=== PATIENT | female | born 1975 | race Caucasian/White ===

== ENCOUNTER 2018-12-22 22:17 | Emergency (ER) | payer SELFPAY ==
[~2018-12-22] VITALS: Ht 175.3 cm; Wt 104.0 kg
--- NOTE | 2018-12-22 22:22 | ED.ADGEN ---
Past History Past Medical History: Kidney Stones, UTI Adult General Chief Complaint Chief Complaint ".. I think I am having another kidneys stone.. .. I t a stabbing pain in my flank and abdomen... and it radiates down to my lower abdomen. .... " HPI HPI Patient is a 43 year old female who presents with above hx and complaints of right flank back and abdomen pain. Patient gives a history of multiple kidney stones. Patient advises most onset of kidney stones On her right side. She's had one episode of kidney stones on the left side. Patient denies any history of trauma. Patient denies any intake bad food. Patient denies any travel. Patient denies any history immunosuppression. There is no history of colitis, IBS or inflammatory bowel disorders with her family members. No history of vaginal discharge. No history of dysuria currently. The pt. , does have complaints of hematuria Review of Systems Review of Systems Constitutional: Denies fever or chills [] Eyes: Denies change in visual acuity, redness, or eye pain [] HENT: Denies nasal congestion or sore throat [] Respiratory: Denies cough or shortness of breath [] Cardiovascular: No additional information not addressed in HPI [] GI: History of severe abdominal pain, nausea, vomiting. Denies, bloody stools or diarrhea [] : Denies dysuria or hematuria [] Musculoskeletal: Complaints of severe right flank pain Integument: Denies rash or skin lesions [] Neurologic: Denies headache, focal weakness or sensory changes [] Endocrine: Denies polyuria or polydipsia [] All other systems were reviewed and found to be within normal limits, except as documented in this note. Family History Family History Noncontributory Current Medications Current Medications Current Medications Medications (Trade) Dose Ordered Sig/Gabrielle Start Time Stop Time Status Last Admin Dose Admin Famotidine (Pepcid Vial) 20 mg 1X ONCE 12/22/18 23:00 12/22/18 23:01 DC 12/22/18 23:13 20 MG Ketorolac Tromethamine (Toradol 30mg Vial) 30 mg 1X ONCE 12/22/18 23:00 12/22/18 23:01 DC 12/22/18 23:14 30 MG Lactated Ringer's 1,000 ml @ 1,000 mls/hr Q1H 12/22/18 23:00 12/22/18 23:59 DC 12/22/18 23:14 1,000 MLS/HR Levofloxacin (Levaquin) 500 mg 1X ONCE 12/23/18 00:15 12/23/18 00:16 DC 12/23/18 00:02 500 MG Morphine Sulfate (Morphine 10mg Syringe) 10 mg 1X ONCE 12/23/18 00:15 12/23/18 00:16 DC 12/23/18 00:02 10 MG Ondansetron HCl (Zofran) 8 mg 1X ONCE 12/22/18 23:00 12/22/18 23:01 DC 12/22/18 23:13 8 MG Allergies Allergies Allergies Coded Allergies Type Severity Reaction Last Updated Verified No Known Drug Allergies 12/22/18 No Physical Exam Physical Exam Constitutional: in acute distress, non-toxic appearance. [] HENT: Normocephalic, atraumatic, bilateral external ears normal, oropharynx moist, no oral exudates, nose normal. [] Eyes: PERRLA, EOMI, conjunctiva normal, no discharge. [] Neck: Normal range of motion, no tenderness, supple, no stridor. [] Cardiovascular: Tachycardia Heart rate regular rhythm, no murmur [] Lungs & Thorax: Bilateral breath sounds equal at apex auscultation [] Abdomen: Bowel sounds decreased soft, right upper quadrant and flank tenderness, no masses, no pulsatile masses. [Obese. Skin: Warm, dry, no erythema, no rash. [] Back: No tenderness, right CVA tenderness. [] Extremities: No tenderness, no cyanosis, no clubbing, ROM intact, no edema. [] Neurologic: Alert and oriented X 3, normal motor function, normal sensory function, no focal deficits noted. [] Psychologic: Affect anxious, judgement normal, mood normal. [] Current Patient Data Vital Signs Vital Signs Date Time Temp Pulse Resp B/P (MAP) Pulse Ox O2 Delivery O2 Flow Rate FiO2 12/23/18 02:10 102 18 171/122 (138) 98 Room Air 12/22/18 22:17 97.7 Lab Results Laboratory Tests Test 12/22/18 22:30 12/22/18 23:06 White Blood Count 6.2 x10^3/uL (4.0-11.0) Red Blood Count 4.88 x10^6/uL (3.50-5.40) Hemoglobin 14.9 g/dL (12.0-15.5) Hematocrit 43.2 % (36.0-47.0) Mean Corpuscular Volume 89 fL (79-100) Mean Corpuscular Hemoglobin 30 pg (25-35) Mean Corpuscular Hemoglobin Concent 34 g/dL (31-37) Red Cell Distribution Width 13.9 % (11.5-14.5) Platelet Count 281 x10^3/uL (140-400) Neutrophils (%) (Auto) 64 % (31-73) Lymphocytes (%) (Auto) 23 % (24-48) L Monocytes (%) (Auto) 8 % (0-9) Eosinophils (%) (Auto) 4 % (0-3) H Basophils (%) (Auto) 1 % (0-3) Neutrophils # (Auto) 4.0 x10^3uL (1.8-7.7) Lymphocytes # (Auto) 1.4 x10^3/uL (1.0-4.8) Monocytes # (Auto) 0.5 x10^3/uL (0.0-1.1) Eosinophils # (Auto) 0.3 x10^3/uL (0.0-0.7) Basophils # (Auto) 0.0 x10^3/uL (0.0-0.2) Prothrombin Time 9.6 SEC (9.4-11.4) Prothrombin Time INR 0.9 (0.9-1.1) Activated Partial Thromboplast Time 24 SEC (23-33) Urine Collection Type Unknown Urine Color Yellow Urine Clarity Cloudy Urine pH 6.5 Urine Specific [place] 1.025 Urine Protein Neg (NEG-TRACE) Urine Glucose (UA) 100 mg/dL (NEG) Urine Ketones (Stick) Neg mg/dL (NEG) Urine Blood Large (NEG) Urine Nitrite Neg (NEG) Urine Bilirubin Neg (NEG) Urine Urobilinogen Dipstick 0.2 mg/dL (0.2 mg/dL) Urine Leukocyte Esterase Trace (NEG) Urine RBC Tntc /HPF (0-2) Urine WBC 1-4 /HPF (0-4) Urine Squamous Epithelial Cells Occ /LPF Urine Bacteria 0 /HPF (0-FEW) Sodium Level 138 mmol/L (136-145) Potassium Level 3.4 mmol/L (3.5-5.1) L Chloride Level 97 mmol/L (98-107) L Carbon Dioxide Level 29 mmol/L (21-32) Anion Gap 12 (6-14) Blood Urea Nitrogen 6 mg/dL (7-20) L Creatinine 0.7 mg/dL (0.6-1.0) Estimated GFR (Cockcroft-Gault) 91.3 Glucose Level 166 mg/dL (70-99) H Calcium Level 9.3 mg/dL (8.5-10.1) Total Bilirubin 0.3 mg/dL (0.2-1.0) Direct Bilirubin 0.1 mg/dL (0.0-0.2) Aspartate Amino Transferase (AST) 90 U/L (15-37) H Alanine Aminotransferase (ALT) 115 U/L (14-59) H Alkaline Phosphatase 115 U/L (46-116) Creatine Kinase 51 U/L (26-192) Total Protein 8.0 g/dL (6.4-8.2) Albumin 4.3 g/dL (3.4-5.0) Lipase 107 U/L (73-393) Urine Opiates Screen Pos (NEG) Urine Methadone Screen Neg (NEG) Urine Barbiturates Neg (NEG) Urine Phencyclidine Screen Neg (NEG) Urine Amphetamine/Methamphetamine Neg (NEG) Urine Benzodiazepines Screen Pos (NEG) Urine Cocaine Screen Neg (NEG) Urine Cannabinoids Screen Neg (NEG) Urine Ethyl Alcohol Neg (NEG) POC Urine HCG, Qualitative hcg negative (Negative) EKG EKG [] Radiology/Procedures Radiology/Procedures [][address] [address] IMAGING REPORT Signed PATIENT: SAMEER ALVAREZ KACCOUNT: [id number] : 1975 LOCATION: ER AGE: 43 SEX: F EXAM STATUS: REG ER ORD. PHYSICIAN: HCIVO SEGUNDO MD REASON: Rt. abd. and flank pain, H/O KIDNEY STONES PROCEDURE: ACUTE ABDOMEN SERIES Acute abdominal series with PA chest: Reason for examination: Right abdominal and flank pain. History of kidney stones. The heart size is normal. Mediastinum is unremarkable. Lung castle are clear. No acute bony abnormalities are seen in the thorax. There is the liver appears to be enlarged with the tip at the level of the right iliac crest on upright image. Psoas muscles are symmetric. The bowel gas pattern is nonspecific with no abnormally dilated loops of bowel or evidence of bowel obstruction. Surgical clips are seen from previous cholecystectomy. No abnormal calcifications are seen. No acute bony abnormalities are evident. IMPRESSION: No acute cardiopulmonary disease evident. Hepatomegaly. Nonspecific nonobstructive bowel gas pattern. No abnormal calcifications evident. Electronically signed by: Tressa Tompkins MD (12/22/2018 11:55 PM) [facility] DICTATED AND SIGNED BY: TRESSA TOMPKINS MD DATE: 12/22/18 6030 CC: CHIVO SEGUNDO MD; PCP,NO ~ IMAGING REPORT Signed PATIENT: SAMEER ALVAREZOUNT: [id number] : 1975 LOCATION: ER AGE: 43 SEX: F EXAM STATUS: REG ER ORD. PHYSICIAN: CHIVO SEGUNDO MD REASON: Rt.flank pain, hx renal stones., hematuria PROCEDURE: CT ABDOMEN PELVIS WO CONTRAST CT abdomen and pelvis without contrast: Reason for examination: Right flank pain and hematuria. History of renal stones. Helical images were obtained through the abdomen and pelvis with no contrast administered. Reconstruction was performed in sagittal and coronal planes. Exposure: One or more of the following individualized dose reduction techniques were utilized for this examination: 1. Automated exposure control 2. Adjustment of the mA and/or kV according to patient size 3. Use of iterative reconstruction technique. The lung bases show calcified granuloma in the right middle lobe. The heart size is normal no gross pericardial effusion seen. No focal abnormality seen at the liver, spleen, adrenal glands or pancreas. The gallbladder surgically absent. The spleen does appear to be enlarged at 28 cm in length. The abdominal aorta and inferior vena cava show no acute abnormalities. The right kidney shows a nonobstructing calculus in the lower pole. No hydronephrosis is seen. There is no evidence of obstructive uropathy. The colon shows no evidence of diverticulosis or diverticulitis or colitis. The appendix is not identified. The small intestinal tract shows no abnormally dilated loops of bowel or evidence of bowel obstruction. No abnormality seen stomach. No abnormality seen at the bladder or vaginal cuff. No acute bony abnormalities are seen. IMPRESSION: Enlarged liver without a focal lesion. Nonobstructing calculus at the lower pole of the right kidney. No evidence of hydronephrosis or obstructive uropathy in either kidney. Electronically signed by: Tressa Tompkins MD (12/23/2018 1:32 AM) [facility] DICTATED AND SIGNED BY: TRESSA TOMPKINS MD DATE: 12/23/18 0132 CC: CHIVO SEGUNDO MD; PCP,NO ~ Course & Med Decision Making Course & Med Decision Making Pertinent Labs and Imaging studies reviewed. (See chart for details). Patient push fluids. Patient stay on a clear fluid diet. Patient take Zofran 8 mg up 4 times a day as needed for nausea and vomiting. Patient to follow up urine cultures. Patient take Levaquin 500 mg daily for 5 days. Patient states any stones or past. At time of discharge patient reportedly marked relief of her symptoms and right flank. [] Final Impression Final Impression 1. Abdomen and Flank Pain[] 2. Renal colic 3. Elevated AST and ALT 90/115 4. Mild hypokalemia 3.4 5. Diabetes-elevated glucose 166 6. Hematuria Dragon Disclaimer Dragon Disclaimer This electronic medical record was generated, in whole or in part, using a voice recognition dictation system. Dragon Disclaimer This chart was dictated in whole or in part using Voice Recognition software in a busy, high-work load, and often noisy Emergency Department environment. It may contain unintended and wholly unrecognized errors or omissions. CHIVO SEGUNDO MD Dec 22, 2018 22:22
[2018-12-22] MEDS ORDERED: FAMOTIDINE 20 MG/2 ML VIAL IVP ONE (23:00)
[2018-12-22] MEDS ORDERED: IV RINGERS SOLUTION,LACTATED 1,000 ML IV SCH (23:00)
[2018-12-22] MEDS ORDERED: KETOROLAC 30 MG/ML VIAL. IVP ONE (23:00)
[2018-12-22] MEDS ORDERED: ONDANSETRON PF 4 MG/2 ML VIAL. IVP ONE (23:00)
[2018-12-22 23:23] LABS: BASO % 1 % (0-3); EOS # 0.3 x10^3/uL (0.0-0.7); EOS % 4 % (0-3); HEMATOCRIT 43.2 % (36.0-47.0); HEMOGLOBIN 14.9 g/dL (12.0-15.5); LYMPH # 1.4 x10^3/uL (1.0-4.8); LYMPH % 23 % (24-48); MEAN CORPUSCULAR HEMOGLOBIN 30 pg (25-35); MEAN CORPUSCULAR HGB CONC 34 g/dL (31-37); MEAN CORPUSCULAR VOLUME 89 fL (79-100); MONO # 0.5 x10^3/uL (0.0-1.1); MONO % 8 % (0-9); NEUT % 64 % (31-73); PLATELET COUNT 281 x10^3/uL (140-400); RED BLOOD COUNT 4.88 x10^6/uL (3.50-5.40); RED CELL DISTRIBUTION WIDTH 13.9 % (11.5-14.5); WHITE BLOOD COUNT 6.2 x10^3/uL (4.0-11.0)
[2018-12-22 23:26] LABS: BARBITURATES NEG (NEG); BENZODIAZEPINES POS (NEG); CANNABINOIDS NEG (NEG); COCAINE NEG (NEG); METHADONE NEG (NEG); OPIATES POS (NEG); PHENCYCLIDINE NEG (NEG)
[2018-12-22 23:27] LABS: AMPHETAMINE/METHAMPHETAMINE NEG (NEG)
[2018-12-22 23:33] LABS: ALBUMIN 4.3 g/dL (3.4-5.0); CALCIUM 9.3 mg/dL (8.5-10.1); CREATININE 0.7 mg/dL (0.6-1.0); DIRECT BILIRUBIN 0.1 mg/dL (0.0-0.2); GFR 91.3; POTASSIUM 3.4 mmol/L (3.5-5.1); TOTAL BILIRUBIN 0.3 mg/dL (0.2-1.0)
[2018-12-22 23:37] LABS: BACTERIA,URINE 0 /HPF (0-FEW); BILIRUBIN,URINE NEG (NEG); CLARITY,URINE CLOUDY; COLOR,URINE YELLOW; GLUCOSE,URINE 100 mg/dL (NEG); NITRITE,URINE NEG (NEG); RBC,URINE TNTC /HPF (0-2); SQUAMOUS EPITHELIAL CELL,UR OCC /LPF; UROBILINOGEN,URINE 0.2 mg/dL (0.2 mg/dL)
--- NOTE | 2018-12-22 23:58 | RAD ---
Acute abdominal series with PA chest: Reason for examination: Right abdominal and flank pain. History of kidney stones. The heart size is normal. Mediastinum is unremarkable. Lung castle are clear. No acute bony abnormalities are seen in the thorax. There is the liver appears to be enlarged with the tip at the level of the right iliac crest on upright image. Psoas muscles are symmetric. The bowel gas pattern is nonspecific with no abnormally dilated loops of bowel or evidence of bowel obstruction. Surgical clips are seen from previous cholecystectomy. No abnormal calcifications are seen. No acute bony abnormalities are evident. IMPRESSION: No acute cardiopulmonary disease evident. Hepatomegaly. Nonspecific nonobstructive bowel gas pattern. No abnormal calcifications evident. Electronically signed by: Tressa Gregg MD (12/22/2018 11:55 PM) [facility]
[2018-12-23] MEDS ORDERED: MORPHINE SULFATE 10 MG/ML SYRINGE. SQ ONE (00:15)
[2018-12-23] MEDS ORDERED: levoFLOXacin 500 MG TABLET PO ONE (00:15)
--- NOTE | 2018-12-23 01:35 | RAD ---
CT abdomen and pelvis without contrast: Reason for examination: Right flank pain and hematuria. History of renal stones. Helical images were obtained through the abdomen and pelvis with no contrast administered. Reconstruction was performed in sagittal and coronal planes. Exposure: One or more of the following individualized dose reduction techniques were utilized for this examination: 1. Automated exposure control 2. Adjustment of the mA and/or kV according to patient size 3. Use of iterative reconstruction technique. The lung bases show calcified granuloma in the right middle lobe. The heart size is normal no gross pericardial effusion seen. No focal abnormality seen at the liver, spleen, adrenal glands or pancreas. The gallbladder surgically absent. The spleen does appear to be enlarged at 28 cm in length. The abdominal aorta and inferior vena cava show no acute abnormalities. The right kidney shows a nonobstructing calculus in the lower pole. No hydronephrosis is seen. There is no evidence of obstructive uropathy. The colon shows no evidence of diverticulosis or diverticulitis or colitis. The appendix is not identified. The small intestinal tract shows no abnormally dilated loops of bowel or evidence of bowel obstruction. No abnormality seen stomach. No abnormality seen at the bladder or vaginal cuff. No acute bony abnormalities are seen. IMPRESSION: Enlarged liver without a focal lesion. Nonobstructing calculus at the lower pole of the right kidney. No evidence of hydronephrosis or obstructive uropathy in either kidney. Electronically signed by: Tressa Gregg MD (12/23/2018 1:32 AM) [facility]
[2018-12-23] MEDS ORDERED: HYDR-1179 PO (02:06)
[2018-12-23] MEDS ORDERED: LEVO500T59 PO (02:06)
[2018-12-23] MEDS ORDERED: ONDA8TAB9 PO (02:06)
[2018-12-23 02:10] VITALS: BP 171/122
== END 2018-12-23 02:10 | disposition home or self-care (01) ==
LOC: ER 22:17
DX: N23 Unspecified renal colic (principal); E87.6 Hypokalemia; E11.65 Type 2 diabetes mellitus with hyperglycemia; R31.9 Hematuria, unspecified; R74.8 Abnormal levels of other serum enzymes; Z87.442 Personal history of urinary calculi; Z87.440 Personal history of urinary (tract) infections
CPT/HCPCS: 36415; 74022; 74176; 80048; 80076; 80307; 81001; 81025; 82550; 83690; 85025; 85610; 85730; 86705; 86709; 86803; 87086; 87340; 96361; 96372; 96374; 96375; 99285; J1885; J2270; J2405; J3490; J7120